=== PATIENT | female | born 1975 | race Caucasian/White ===

== ENCOUNTER 2016-05-17 07:57 | Emergency (ER) | payer OTHER ==
[2016-05-17 08:10] VITALS: BP 144/67; PULSE 88; RESP 16; TEMP 97.7; O2SAT 98
--- NOTE | 2016-05-17 08:21 | UCPHY ---
H & P Time Seen by Provider: 05/17/16 08:11 Patient Type: Established HPI/ROS: This patient has a sore throat of 4 days duration. She reports moderate discomfort from this that worsens when she swallows food. She notes no other exacerbating or alleviating factors. She has a feeling fullness in the anterior cervical lymph node region associated with this. ROS: She reports fatigue. No fevers or other constitutional complaints. She reports no HEENT complaints other than the sore throat. Integumentary: No rash musculoskeletal: Chronic knee pain but no acute complaints. 5 point ROS is otherwise negative. Smoking Status: Never smoked Physical Exam: Physical Exam Vital signs are normal. General: No acute distress HEENT: Nose: Clear oropharynx: Mild tonsillar swelling to the right tonsil. No dysphonia. Ears: Clear bilaterally Eyes: Pupils equal and react to light. Extraocular motions are intact. Neck: Minimal anterior cervical lymphadenopathy supple Lungs: Clear to auscultation bilaterally. No respiratory distress. Cardiac: Regular rate and rhythm with no murmur gallop or rub. Skin: No rash or pallor. Neuro: Alert and oriented x3 with no sensorimotor deficits. Initial differential diagnosis: Viral pharyngitis versus bacterial tonsillitis. Constitutional: Initial Vital Signs Temperature (C) 36.5 C 05/17/16 08:07 Heart Rate 88 05/17/16 08:07 Respiratory Rate 16 05/17/16 08:07 Blood Pressure 144/67 H 05/17/16 08:07 O2 Sat (%) 98 05/17/16 08:07 O2 Delivery Mode Room Air Allergies/Adverse Reactions: No Known Allergies Allergy (Verified 05/17/16 08:06) Home Medications: Medication Instructions Recorded lamoTRIgine [LamICTAL 100 MG (RX)] 100 mg PO DAILY 11/12/14 Deplin-Algal Oil 15 mg Capsule 03/19/16 Enbrace Hr Softgel 03/19/16 VYVANSE 03/19/16 MDM/Departure - MDM Diagnostics: Rapid strep is negative. ED Course/Re-evaluation: I counseled the patient regarding viral pharyngitis. - Depart Disposition: Home, Routine, Self-Care Clinical Impression: Viral pharyngitis Condition: Good Instructions: Pharyngitis (ED) Additional Instructions: Diagnosis: Viral pharyngitis Plan: Consider zinc supplement plenty fluids, ibuprofen for discomfort if needed Your symptoms should improve over the next 1-6 days or so Return for any significant worsening despite the treatment plan - PQRS PQRS Measurement: NA
== END 2016-05-17 08:33 | disposition home or self-care (01) ==
LOC: CED 07:57
DX: J02.8 Acute pharyngitis due to other specified organisms (principal)
CPT/HCPCS: 87880-PO; 99214-PO; G0463-PO

== ENCOUNTER → 2016-06-02 | Outpatient (CLI) | payer OTHER ==
--- NOTE | 2016-06-02 15:01 | MA ---
Screening Digital Mammogram With iCAD Analysis Clinical Indications: Routine screening. Technique: Standard cephalocaudal projections are obtained. Digital breast tomosynthesis was performe d in the MLO projection with reconstruction at 1.0 mm slice thickness and composite MLO views reconst ructed. This examination is processed by the iCAD computer aided detection system. Comparison: December 2012. Breast density: Type C: Heterogeneously dense. Findings: CAD was reviewed. No masses, suspicious calcifications or secondary signs of malignancy are seen. There has been no significant change in the appearance of either breast. Impression: Negative mammogram. BI-RADS 1. Recommendation: Routine mammographic screening in one year as long as physical examination is negativ e in this patient with heterogeneously dense breast parenchyma. [facility] will send a result letter to the patient. Negative mammography should not preclude additional workup of a clinically suspicious finding. The patient's information is entered into a reminder system with a target due date for her next mammo gram.
== END ==
LOC: FIMAGING 14:23
DX: Z12.31 Encounter for screening mammogram for malignant neoplasm of breast (principal)
CPT/HCPCS: G0202

== ENCOUNTER → 2017-06-05 | Outpatient (CLI) | payer OTHER | LOC: FIMAGING 15:09 | DX: Z12.31 Encounter for screening mammogram for malignant neoplasm of breast (principal) ==